=== PATIENT | female | born 1985 | race Caucasian/White ===

== ENCOUNTER → 2017-03-26 | Outpatient (CLI) | payer OTHER ==
[2017-03-26 11:45] LABS: PROTEIN/CREATININE RATIO 0.13
== END ==
LOC: LABNPT 11:18
PROVIDERS: ATTEND Obstetrics & Gynecology
DX: O28.8 Other abnormal findings on antenatal screening of mother (principal); Z3A.00 Weeks of gestation of pregnancy not specified
CPT/HCPCS: 82570; 84156

== ENCOUNTER 2017-04-09 10:00 | Inpatient (IN) | payer OTHER ==
[2017-04-09] VITALS (40 sets, daily range): BP systolic 107–136; BP diastolic 55–80
[~2017-04-09] VITALS: Ht 166.4 cm; Wt 79.8 kg
[2017-04-09] MEDS ORDERED: D5 LR IV SOLUTION 1,000 ML IV SCH (10:37)
[2017-04-09] MEDS ORDERED: OXYTOCIN/NORMAL SALINE 500 ML IV SCH ×2 (10:46→17:33)
[2017-04-09] MEDS ORDERED: PREN1TAB86 PO (11:25)
[2017-04-09 11:33] LABS: BASOPHILS % (AUTO) 0 % (0-10); EOSINOPHILS % (AUTO) 0 % (0-10); LYMPHOCYTES % (AUTO) 14 % (12-44); MEAN CORPUSCULAR HEMOGLOBIN 30 PG (25-34); MEAN CORPUSCULAR HGB CONC 34 G/DL (32-36); MEAN CORPUSCULAR VOLUME 89 FL (80-99); MEAN PLATELET VOLUME 11.6 FL (7.4-10.4); MONOCYTES % (AUTO) 7 % (0-12); NEUTROPHILS # (AUTO) 11.1 X 10^3 (1.8-7.8); NEUTROPHILS % (AUTO) 79 % (42-75); PLATELET COUNT 239 10^3/uL (130-400); RED BLOOD COUNT 4.41 10^6/uL (4.35-5.85); RED CELL DISTRIBUTION WIDTH 12.9 % (10.0-14.5); WHITE BLOOD COUNT 14.2 10^3/uL (4.3-11.0)
[2017-04-09] MEDS ORDERED: METH4TAB10 PO (11:52)
[2017-04-09] MEDS ORDERED: LIDOCAINE/EPI 2% 1:200,00 (XYLOCAINE) 10 ML VIAL ONE (13:06)
[2017-04-09 13:30] LABS: BAND NEUTROPHILS 1 %; EOSINOPHILS % (MANUAL) 1 %; LYMPHOCYTES % (MANUAL) 18 %; NEUTROPHILS % (MANUAL) 70 %; REACTIVE LYMPHOCYTES 3 %
[2017-04-09 13:31] LABS: ROULEAUX MOD
[2017-04-09] MEDS ORDERED: CATHETER FLUSH 10 ML SYR IV SCH (14:00)
[2017-04-09] MEDS ORDERED: methylPREDNISolone 40 MG/ML (Solu-MEDROL) VIAL IV SCH (14:00)
[2017-04-09] MEDS ORDERED: LACTATED RINGERS 1,000 ML IV ONE (15:20)
[2017-04-09] MEDS ORDERED: SUFENTA 0.6MCG/ML BUPIVA 0.125 100 ML ONE (15:20)
[2017-04-09] MEDS ORDERED: NALOXONE 0.4 MG/ML 1 ML (NARCAN) VIAL IV PRN (16:00)
[2017-04-09] MEDS ORDERED: CATHETER FLUSH 10 ML SYR IV PRN ×2 (16:00→17:50)
[2017-04-09] MEDS ORDERED: fentaNYL INJECTION 100 MCG/2 ML AMP ONE (16:13)
[2017-04-09] MEDS ORDERED: LIDOCAINE PF 2% 5 ML (XYLOCAINE) VIAL ONE (16:13)
[2017-04-09] MEDS ORDERED: BUPIVACAINE 0.25% 30 ML (SENSORCAINE) VIAL ONE (16:13)
[2017-04-09] MEDS ORDERED: EPIDURAL (SUFENTA 0.6MCG/ML BUPIVA 0.125%) 100 ML BAG EPI SCH (16:45)
[2017-04-09] MEDS ORDERED: FAMOTIDINE 20MG/2ML IV (PEPCID) ONE (17:25)
[2017-04-09] MEDS ORDERED: METOCLOPRAMIDE INJ 10 MG/2 ML (REGLAN) ONE (17:26)
[2017-04-09] MEDS ORDERED: CITRIC ACID/SOB CIT (BICITRA) 30 ML UDC ONE (17:26)
[2017-04-09] MEDS ORDERED: metroNIDAZOLE 500MG/100ML IVPB 100 ML ONE (17:29)
[2017-04-09] MEDS ORDERED: ceFAZolin 2 GM/50 ML NS 50 ML ONE (17:30)
[2017-04-09] MEDS ORDERED: D5 LR IV SOLUTION 1,000 ML IV ONE (17:41)
--- NOTE | 2017-04-09 17:42 | History & Physical ---
History and Physical Date Seen by Provider: Apr 09, 2017 Time Seen by Provider: 17:36 this patient is a 31-year-old G1 white female with an EDC of [id number] seen in clinic on this date at 37-5/7 weeks gestation. Her is complicated by gestational diabetes type AI. also located by severe Puppp currently on 60-80 mg of Medrol daily for symptomatic control. during the period of observation my clinic.she was uncomfortable with contractions. she was seen on this date in clinic and found to be serenity every 3 minutes.there were suspicious D cells during the period of observation. she was sent to labor and delivery. Pitocin was initiated to augment her labor. FSblood sugars on 2 hours apart after admission were less than 120. amniotomy performed releasing clear fluid when the patient was about 2 cm dilated. SHe has progressed now to 3 but has begun having repetitive late D cells. Her ability is now minimal. There is no significant acceleration with scalp stimulation. Surgical crews have been called for a . Pediatricians have been called and anesthesia has been called.Pitocin stopped. allergies are none Medications are vitamins and Medrol 60-80 mg a day Medical surgical social family and obstetric histories are per the antepartum record ENT exam is normal Neck is supple no lymphadenopathy no thyromegaly Abdomen is gravid soft nontender nondistended Extremities show no clubbing cyanosis. There is no Homans sign. There is a fine miliary rash on her extremities. His rashes been somewhat migratory. It has waxed and waned with treatment with steroids. Pelvic exam shows a cervix now 37 Ms. dilated 80 percent effaced -1 to -2 station vertex presentation was clear fluid still in released. Presenting part is not well applied to the cervix. monitor shows repetitive D cells with a decreased variability over the last 18-20 minutes of monitoring. Laboratory Tests 04/09/17 11:05 Assessment and plan term at 37-5/7 weeks' gestation complicated by gestational diabetes and severe Puppp. She presented in latent labor. Progressed now almost to the point of active labor however now with nonreassuring heart rate pattern Pitocin has been discontinued in favor of proceeding with a delivery. Surgical risks recovery follow-up have been fully discussed with this patient prior to today and again on this date. She agrees with the assessment and plan to proceed with delivery. Allergies and Home Medications Allergies Coded Allergies: No Known Drug Allergies (Unverified , 04/09/17) Home Medications Methylprednisolone 4 Mg Tab.ds.pk, 4 MG PO UD, (Reported) Vit W-Ca,Fe,FA(<1 mg) 1 Each Tablet, 1 EACH PO DAILY, (Reported) Clinical Quality Measures DVT/VTE Risk/Contraindication: Risk Factor Score Per Nursin RFS Level Per Nursing on Admit: 1=Low/No VTE PPX PAUL VERMA MD Apr 09, 2017 5:42 pm
--- NOTE | 2017-04-09 17:43 | Progress Note-Pre Operative ---
Pre-Operative Progress Note H&P Reviewed The H&P was reviewed, patient examined and no changes noted. Date Seen by Provider: Apr 09, 2017 Time Seen by Provider: 17:42 Date H&P Reviewed: Apr 09, 2017 Time H&P Reviewed: 17:42 Pre-Operative Diagnosis: 37-5/7 weeks' gestation with gestational diabetes and nonreassuring FHRP PAUL VERMA MD Apr 09, 2017 5:43 pm
--- NOTE | 2017-04-09 17:44 | Progress Note-Post Operative ---
Post-Operative Progess Note Surgeon (s)/Call Center Specialist (s) Surgeon PAUL VERMA MD Call Center Specialist: Preethi Cruz Pre-Operative Diagnosis 37-5/7 weeks' gestation with gestational diabetes and nonreassuring FHRP Post-Operative Diagnosis same with CPD Procedure & Operative Findings Date of Procedure 04/09/17 Procedure Performed/Findings primary low-transverse transverse delivery Anesthesia Type epidural Estimated Blood Loss Estimated blood loss (mL): 500 cc Specimens/Packing Specimens Removed placenta/umbilical cord/cord bloods Packing: none PAUL VERMA MD Apr 09, 2017 17:44
[2017-04-09] MEDS ORDERED: ceFAZolin INJECTION 2,000 MG in NS (IVPB) 50 ML IV ONE (17:45)
[2017-04-09] MEDS ORDERED: metroNIDAZOLE 500MG/100ML IVPB 100 ML IV ONE (17:45)
[2017-04-09] MEDS ORDERED: PROMETHAZINE INJ 25 MG/ML (PHENERGAN) AMP IM PRN (17:45)
[2017-04-09] MEDS ORDERED: TETANUS,DIPTH,PERTUSS P/F (BOOSTRIX) 0.5 ML VIAL IM ONE (17:45)
[2017-04-09] MEDS ORDERED: fentaNYL INJECTION 100 MCG/2 ML AMP IVP PRN (17:45)
[2017-04-09] MEDS ORDERED: KETAMINE HCL 100 MG/ML 5 ML VIAL ONE (17:46)
[2017-04-09] MEDS ORDERED: METOCLOPRAMIDE INJ 10 MG/2 ML (REGLAN) IV ONE (17:50)
[2017-04-09] MEDS ORDERED: LACTATED RINGERS 1,000 ML IV PRN ×2 (17:50→18:54)
[2017-04-09] MEDS ORDERED: FAMOTIDINE 20MG/2ML IV (PEPCID) IV ONE (17:50)
[2017-04-09] MEDS ORDERED: CITRIC ACID/SOB CIT (BICITRA) 30 ML UDC PO ONE (17:50)
[2017-04-09] MEDS ORDERED: OXYTOCIN/NORMAL SALINE 1,000 ML IV ONE (18:14)
[2017-04-09] MEDS ORDERED: ONDANSETRON 4 MG/2 ML (SDV) Z0FRAN ONE (18:39)
[2017-04-09] MEDS ORDERED: methylPREDNISolone 125 MG (Solu-MEDROL) VIAL IVP NR (20:00)
[2017-04-09] MEDS: DOCUSATE SODIUM 100 MG (COLACE) CAP PO SCH (21:26)
[2017-04-09] MEDS: oxyCODONE/APAP 10/325MG (PERCOCET 10) TABLET PO PRN (21:26)
[2017-04-10 00:40] VITALS: BP 116/65
[2017-04-10] MEDS: KETOROLAC 30 MG/ML VIAL IVP SCH ×2 (02:32→08:10)
[2017-04-10 05:25] VITALS: BP 115/70
--- NOTE | 2017-04-10 05:36 | OPERATIVE REPORT ---
DATE OF SERVICE: 04/09/2017 PREOPERATIVE DIAGNOSES: 1. Term at 37 and 5/7th weeks' gestation. 2. Labor, with nonreassuring heart rate pattern. 3. History of gestational diabetes. POSTOPERATIVE DIAGNOSES: 1. Term at 37 and 5/7th weeks' gestation. 2. Labor, with nonreassuring heart rate pattern. 3. History of gestational diabetes. 4. Cephalopelvic disproportion. OPERATIVE PROCEDURE: Primary low transverse delivery of a viable female with Apgars of 8 and 9 at 1 and 5 minutes respectively, weight 7 pounds, time of 1822, cord blood gas of 7.21 on the pH, pCO2 72.7, pO2 10, base excess 0.5. OPERATIVE DESCRIPTION: With the patient in a supine position under satisfactory epidural anesthesia, she was prepped and draped in the usual fashion for abdominal surgery. A Goldberg catheter had been placed in the urinary bladder during labor, that was left to dependent drainage. A Pfannenstiel incision made through the skin with a scalpel and the patient's abdomen entered in the usual manner. A bladder retractor placed into position. A clean scalpel used to make a 4 cm hysterotomy incision transversely across the uterine segment. That was extended by blunt dissection. Lewis forceps were applied to facilitate the delivery of a vigorous, viable female . The infant had Apgars of 8 and 9, weight of 7 pounds, time of 1822. Cord blood gas as noted above. The had a nuchal cord that was easily released. The infant was bulb suctioned on delivery of the head and again on completion of the delivery. The cord was doubly clamped and cut and the infant passed to Dr. Gomez, the bioinformaticist in attendance for delivery. Cord bloods were obtained, the placenta delivered spontaneously Bulmaro. It was normal with a 3 vessel cord. The uterus was exteriorized, the anterior wiped clean with a wet laparotomy sponge. The uterine incision then closed with a running locked suture of 2-0 Vicryl. Hemostasis was complete. It is noted that the patient had numerous subcentimeter, subserosal uterine leiomyoma. The uterus was returned to the abdominal cavity. All blood clot and debris removed from the abdominal cavity. The sponge and needle count was correct, hemostasis assured, the anterior parietal peritoneum was closed with a running suture of 2-0 Vicryl and the rectus muscles were closed with that suture as well, the rectus fascia was closed with 2-0 Vicryl, subcutaneous tissue were closed with 2-0 Vicryl and the skin was stapled. The sponge and needle counts were correct at the end of the procedure. Estimated blood loss for the procedure around 500 mL. The patient tolerated the procedure well and was transferred to the recovery room in stable condition. The infant had been taken stable to the full term nursery under the care of Dr. Gomez. Job ID: [id number] DocumentID: [id number] Dictated Date: 04/09/2017 18:44:09 Electro Mechanical Technician Date: 04/10/2017 05:35:47 Dictated By: PAUL VERMA MD
[2017-04-10] MEDS: oxyCODONE/APAP 10/325MG (PERCOCET 10) TABLET PO PRN ×3 (06:27→19:57)
--- NOTE | 2017-04-10 06:54 | Progress Note-Standard ---
Standard Progress Note Progress Notes/Assess & Plan Date Seen by Provider: Apr 10, 2017 Time Seen by Provider: 06:53 Progress/Assessment & Plan patient is without complaint. She is ambulating, voiding, tolerating by mouth, has good pain control. Vital Signs Date Time Temp Pulse Resp B/P (MAP) Pulse Ox O2 Delivery O2 Flow Rate FiO2 04/10/17 05:25 97.6 74 18 115/70 97 Room Air 04/10/17 00:40 97.8 75 18 116/65 96 Room Air 04/09/17 21:00 97.2 80 17 112/61 94 Room Air 04/09/17 20:02 Room Air 04/09/17 18:00 98.9 92 18 109/55 98 Non Rebreather 15.00 04/09/17 17:48 91 18 124/74 Non Rebreather 15.00 04/09/17 17:42 89 18 113/78 98 Non Rebreather 15.00 04/09/17 17:37 99 18 118/72 98 Non Rebreather 15.00 04/09/17 17:35 116 18 115/61 98 Non Rebreather 15.00 04/09/17 17:19 63 18 109/57 99 Non Rebreather 15.00 04/09/17 17:14 71 18 108/63 99 Non Rebreather 15.00 04/09/17 17:10 68 18 107/58 99 Non Rebreather 15.00 04/09/17 17:02 98.9 72 18 110/59 99 Non Rebreather 15.00 04/09/17 16:55 85 18 119/65 99 Non Rebreather 15.00 04/09/17 16:52 78 18 121/65 98 Non Rebreather 15.00 04/09/17 16:49 75 18 125/63 96 Non Rebreather 15.00 04/09/17 16:46 97 18 128/64 96 Non Rebreather 15.00 04/09/17 16:43 76 18 117/61 96 Non Rebreather 15.00 04/09/17 16:41 74 18 126/67 97 Room Air 04/09/17 16:37 79 18 112/65 96 Room Air 04/09/17 16:35 94 18 124/68 97 Room Air 04/09/17 16:32 82 18 133/77 97 Room Air 04/09/17 16:30 100 18 136/72 97 Room Air 04/09/17 16:15 75 18 135/74 Room Air 04/09/17 16:00 76 18 134/73 Room Air 04/09/17 15:45 75 18 126/71 Room Air 04/09/17 15:30 98.1 72 18 132/77 Room Air 04/09/17 15:15 81 18 136/77 Room Air 04/09/17 15:00 76 18 129/75 Room Air 04/09/17 14:45 72 18 126/74 Room Air 04/09/17 14:30 78 18 130/73 Room Air 04/09/17 14:15 74 18 129/74 Room Air 04/09/17 14:00 98.9 81 18 127/67 Room Air 04/09/17 13:45 71 18 128/69 Room Air 04/09/17 13:30 78 18 128/76 Room Air 04/09/17 13:15 75 18 128/74 Room Air 04/09/17 13:00 76 18 124/67 Room Air 04/09/17 12:45 76 18 113/63 Room Air 04/09/17 12:30 97.8 80 18 114/69 Room Air 04/09/17 12:15 93 18 111/56 Room Air 04/09/17 12:00 98.4 83 18 119/57 Room Air 04/09/17 11:45 93 18 118/69 Room Air 04/09/17 11:30 Room Air 04/09/17 11:00 Room Air 04/09/17 10:11 98.3 90 18 124/76 98 Room Air vital signs are stable. Patient is afebrile. Abdomen is benign. The surgical incision is clean dry and intact.fundus is firm below the umbilicus and nontender Extreme show clubbing or cyanosis. There is no Homans sign assessment and plan operative day number 1 status post primary doing well. Plan is for routine convalescence care today and consider discharge home tomorrow PAUL VERMA MD Apr 10, 2017 6:54 am
[2017-04-10] MEDS ORDERED: predniSONE 5 MG TAB PO SCH (07:00)
[2017-04-10] MEDS ORDERED: TETANUS,DIPTH,PERTUSS P/F (BOOSTRIX) 0.5 ML VIAL IM ONE (07:59)
[2017-04-10 08:10] VITALS: BP 122/70
[2017-04-10] MEDS: DOCUSATE SODIUM 100 MG (COLACE) CAP PO SCH ×2 (08:10→19:58)
[2017-04-10 12:00] VITALS: BP 123/70
[2017-04-10] MEDS: IBUPROFEN 800 MG (MOTRIN) TAB PO SCH ×2 (14:43→19:58)
[2017-04-10 16:30] VITALS: BP 112/69
[2017-04-10 21:40] VITALS: BP 120/73
[2017-04-11 02:00] VITALS: BP 114/67
[2017-04-11] MEDS: IBUPROFEN 800 MG (MOTRIN) TAB PO SCH ×2 (02:06→07:47)
[2017-04-11] MEDS: oxyCODONE/APAP 10/325MG (PERCOCET 10) TABLET PO PRN ×2 (02:07→07:46)
--- NOTE | 2017-04-11 07:32 | Progress Note-Standard ---
Standard Progress Note Progress Notes/Assess & Plan Date Seen by Provider: Apr 11, 2017 Time Seen by Provider: 07:31 Progress/Assessment & Plan patient is without complaint. She is ambulating, voiding, tolerating by mouth, has good pain control. Vital Signs Date Time Temp Pulse Resp B/P (MAP) Pulse Ox O2 Delivery O2 Flow Rate FiO2 04/10/17 05:25 97.6 74 18 115/70 97 Room Air 04/10/17 00:40 97.8 75 18 116/65 96 Room Air 04/09/17 21:00 97.2 80 17 112/61 94 Room Air 04/09/17 20:02 Room Air 04/09/17 18:00 98.9 92 18 109/55 98 Non Rebreather 15.00 04/09/17 17:48 91 18 124/74 Non Rebreather 15.00 04/09/17 17:42 89 18 113/78 98 Non Rebreather 15.00 04/09/17 17:37 99 18 118/72 98 Non Rebreather 15.00 04/09/17 17:35 116 18 115/61 98 Non Rebreather 15.00 04/09/17 17:19 63 18 109/57 99 Non Rebreather 15.00 04/09/17 17:14 71 18 108/63 99 Non Rebreather 15.00 04/09/17 17:10 68 18 107/58 99 Non Rebreather 15.00 04/09/17 17:02 98.9 72 18 110/59 99 Non Rebreather 15.00 04/09/17 16:55 85 18 119/65 99 Non Rebreather 15.00 04/09/17 16:52 78 18 121/65 98 Non Rebreather 15.00 04/09/17 16:49 75 18 125/63 96 Non Rebreather 15.00 04/09/17 16:46 97 18 128/64 96 Non Rebreather 15.00 04/09/17 16:43 76 18 117/61 96 Non Rebreather 15.00 04/09/17 16:41 74 18 126/67 97 Room Air 04/09/17 16:37 79 18 112/65 96 Room Air 04/09/17 16:35 94 18 124/68 97 Room Air 04/09/17 16:32 82 18 133/77 97 Room Air 04/09/17 16:30 100 18 136/72 97 Room Air 04/09/17 16:15 75 18 135/74 Room Air 04/09/17 16:00 76 18 134/73 Room Air 04/09/17 15:45 75 18 126/71 Room Air 04/09/17 15:30 98.1 72 18 132/77 Room Air 04/09/17 15:15 81 18 136/77 Room Air 04/09/17 15:00 76 18 129/75 Room Air 04/09/17 14:45 72 18 126/74 Room Air 04/09/17 14:30 78 18 130/73 Room Air 04/09/17 14:15 74 18 129/74 Room Air 04/09/17 14:00 98.9 81 18 127/67 Room Air 04/09/17 13:45 71 18 128/69 Room Air 04/09/17 13:30 78 18 128/76 Room Air 04/09/17 13:15 75 18 128/74 Room Air 04/09/17 13:00 76 18 124/67 Room Air 04/09/17 12:45 76 18 113/63 Room Air 04/09/17 12:30 97.8 80 18 114/69 Room Air 04/09/17 12:15 93 18 111/56 Room Air 04/09/17 12:00 98.4 83 18 119/57 Room Air 04/09/17 11:45 93 18 118/69 Room Air 04/09/17 11:30 Room Air 04/09/17 11:00 Room Air 04/09/17 10:11 98.3 90 18 124/76 98 Room Air vital signs are stable. Patient is afebrile. Abdomen is benign. The surgical incision is clean dry and intact.fundus is firm below the umbilicus and nontender Extreme show clubbing or cyanosis. There is no Homans sign assessment and plan operative day number 1 status post primary doing well. Plan is for routine convalescence care today and consider discharge home tomorrow April 11, 2017 Patient is without complaint. She is ambulating, voiding, tolerating by mouth, denies chest pain, denies shortness of breath, denies nausea vomiting, and denies headache. Patient is requesting discharge home. Vital Signs Date Time Temp Pulse Resp B/P (MAP) Pulse Ox O2 Delivery O2 Flow Rate FiO2 04/11/17 02:00 98.3 78 18 114/67 96 04/10/17 21:40 97.8 90 18 120/73 97 04/10/17 16:30 98.5 74 18 112/69 97 04/10/17 12:00 98.4 78 18 123/70 98 Room Air 04/10/17 08:10 97.7 72 18 122/70 97 Room Air vital signs are stable. Patient is afebrile. Fundus is firm below the umbilicus and nontender. Incision is clean dry and intact. Extremities show no clubbing cyanosis. There is no Homans sign. There is some pretibial pitting edema that is normal. Assessment and plan postoperative day number 2 status post primary delivery doing well. Plan is for discharge home with follow-up in clinic. Final Diagnosis 37-5/7 weeks gestation primary delivery PAUL VERMA MD Apr 11, 2017 7:32 am
[2017-04-11] MEDS ORDERED: OXYC-465 PO (07:33)
[2017-04-11] MEDS ORDERED: IBUP-1780 PO (07:33)
[2017-04-11] MEDS ORDERED: DOCU100C37 PO (07:33)
--- NOTE | 2017-04-11 07:43 | Discharge Instructions ---
Discharge Instructions Discharge Medications New, Converted or Re-Newed RX: RX on Chart Patient Instructions Patient Instructions: as directed Return to [facility] For: as directed Activity & Diet Discharge Diet: No Restrictions Activity as Tolerated: No Orders-Post D/C & Referrals Follow Up Appt: RTC 1 week for incision check. Call to make follow up appt. for patient in 4 weeks. Wound Care: Remove bala, apply benzoin and steri strips. Activity Per routine post instructions. Diet as tolerated Patient may shower or tub bathe as desired. Continue home meds PAUL VERMA MD Apr 11, 2017 7:43 am
[2017-04-11] MEDS: DOCUSATE SODIUM 100 MG (COLACE) CAP PO SCH (07:46)
[2017-04-11 07:50] VITALS: BP 121/74
[2017-04-11 11:00] VITALS: BP 125/75
[2017-04-11 13:10] VITALS: BP 125/75
== END 2017-04-11 13:10 | disposition home or self-care (01) | DRG 766 ==
LOC: LDRP 10:00
PROVIDERS: ADMIT Obstetrics & Gynecology; ATTEND Obstetrics & Gynecology
PROC: 10D00Z1 Extraction of Products of Conception, Low, Open Approach (ICD-10-PCS; principal; 2017-04-09 18:06)
DX: O65.4 Obstructed labor due to fetopelvic disproportion, unspecified (principal); O26.86 Pruritic urticarial papules and plaques of pregnancy (PUPPP); O24.429 Gestational diabetes mellitus in childbirth, unspecified control; Z3A.37 37 weeks gestation of pregnancy; Z37.0 Single live birth; Z23 Encounter for immunization
CPT/HCPCS: 36415; 82962; 85007; 85027; 86850; 86900; 86901; 87081; 88307; 90715; 94664